=== PATIENT | female | born 1945 | race Caucasian/White ===

== ENCOUNTER 2022-12-09 08:07 | Inpatient (IN) | payer MEDICARE, OTHER ==
[~2022-12-09] VITALS: Ht 149.9 cm; Wt 71.7 kg
[~2022-12-09 08:07] MED LIST: ANESTHESIA TRAY IN PYXIS 1 EA TRAY MC ONE
[2022-12-09] MEDS ORDERED: LIDOCAINE 5% OINT 35.44 GM TUBE ONE (08:28)
[2022-12-09 08:30] VITALS: BP 138/81; TEMP 97.8; O2SAT 94
[2022-12-09] MEDS ORDERED: LIDOCAINE 2%-EPI 1:100,000 30 ML VIAL ONE (11:37)
[2022-12-09] MEDS ORDERED: FENTANYL PF 100MCG/2ML AMPUL ONE (11:38)
[2022-12-09] MEDS ORDERED: MIDAZOLAM HCL 2 MG/2ML VIAL ONE (11:38)
[2022-12-09] MEDS ORDERED: ONDANSETRON HCL/PF 4 MG/2 ML VIAL IV PRN (14:30)
[2022-12-09] MEDS ORDERED: ACETAMINOPHEN 325 MG TABLET PO PRN (14:30)
[2022-12-09] MEDS ORDERED: IV NS 0.9% 1,000 ML IV PRN (14:30)
[2022-12-09] MEDS ORDERED: HYDROMORPHONE 1 MG/1 ML DISP.SYRIN IV PRN (14:30)
[2022-12-09] MEDS ORDERED: hydrALAZINE HCL IV 20 MG VIAL IV PRN (16:30)
[2022-12-09] MEDS ORDERED: DEXTROSE 50%-WATER 50 ML DISP.SYRIN IV PRN (16:30)
[2022-12-09] MEDS ORDERED: ICOS1CAP PO (16:41)
[2022-12-09] MEDS ORDERED: ESOM40CA PO (16:41)
[2022-12-09] MEDS ORDERED: ERGO500093 PO (16:41)
[2022-12-09] MEDS ORDERED: CLOP75TA15 PO (16:41)
[2022-12-09] MEDS ORDERED: DICL2.5D OP (16:41)
[2022-12-09] MEDS ORDERED: RALO60TA PO (16:41)
[2022-12-09] MEDS ORDERED: LISI2.5T2 PO (16:41)
[2022-12-09] MEDS ORDERED: AMLO-212 PO (16:41)
[2022-12-09] MEDS ORDERED: NEBI5TAB8 PO (16:41)
[2022-12-09] MEDS ORDERED: METF-440 PO (16:41)
[2022-12-09] MEDS: BLOOD SUGAR DIAGNOSTIC 1 EACH STRIP IN SCH ×2 (16:53→21:23)
[2022-12-09 20:00] VITALS: BP 134/55; TEMP 98.1; O2SAT 96
[2022-12-09] MEDS: METOPROLOL TARTRATE 25 MG TABLET PO SCH (21:13)
[2022-12-09] MEDS: INSULIN REGULAR, HUMAN 100 UNIT/ML 3 ML VIAL SQ PRN (21:24)
[2022-12-09] MEDS: VANCOMYCIN 1 GM in IV D5W 250ml IV SCH (23:47)
[2022-12-10] MEDS: BLOOD SUGAR DIAGNOSTIC 1 EACH STRIP IN SCH ×2 (06:48→12:56)
[2022-12-10] MEDS: INSULIN REGULAR, HUMAN 100 UNIT/ML 3 ML VIAL SQ PRN (06:50)
[2022-12-10 08:00] VITALS: BP 92/45; TEMP 98.1; O2SAT 98
[2022-12-10 09:00] VITALS: BP 92/55
[2022-12-10] MEDS ORDERED: METFORMIN 500 MG TABLET PO SCH (09:00)
[2022-12-10] MEDS ORDERED: AMLODIPINE BESYLATE 5 MG TABLET PO SCH (09:00)
[2022-12-10] MEDS ORDERED: RALOXIFENE 60 MG TABLET PO SCH (09:00)
[2022-12-10] MEDS ORDERED: LISINOPRIL (5MG) 5 MG TABLET PO SCH (09:00)
[2022-12-10] MEDS ORDERED: PANTOPRAZOLE 40 MG TABLET.DR PO SCH (09:00)
[2022-12-10] MEDS ORDERED: Medication Not On Formulary EA (Icosapent Ethyl (Vascepa) 1 GM) PO SCH (09:00)
[2022-12-10] MEDS: METOPROLOL TARTRATE 25 MG TABLET PO SCH (09:00)
[2022-12-10] MEDS ORDERED: CLOPIDOGREL BISULFATE 75 MG TABLET PO SCH (09:00)
[2022-12-10] MEDS: VANCOMYCIN 1 GM in IV D5W 250ml IV SCH (10:23)
== END 2022-12-10 13:00 | disposition home or self-care (01) | DRG 142 ==
LOC: DS 08:07 → MED 08:09
PROVIDERS: ADMIT Internal Medicine; ATTEND Internal Medicine
PROC: 0NSR04Z Reposition Maxilla with Internal Fixation Device, Open Approach (ICD-10-PCS; principal; 2022-12-09)
PROC: 0CBJ0ZX Excision of Minor Salivary Gland, Open Approach, Diagnostic (ICD-10-PCS; 2022-12-09)
PROC: 0NSV04Z Reposition Left Mandible with Internal Fixation Device, Open Approach (ICD-10-PCS; 2022-12-09)
PROC: 0NST04Z Reposition Right Mandible with Internal Fixation Device, Open Approach (ICD-10-PCS; 2022-12-09)
PROC: 0KB Muscles, Excision (ICD-10-PCS; 2022-12-09)
PROC: 0NBV0ZX Excision of Left Mandible, Open Approach, Diagnostic (ICD-10-PCS; 2022-12-09)
PROC: 0NBR0ZX Excision of Maxilla, Open Approach, Diagnostic (ICD-10-PCS; 2022-12-09)
PROC: 0NBT0ZX Excision of Right Mandible, Open Approach, Diagnostic (ICD-10-PCS; 2022-12-09)
DX: S02.40CA Maxillary fracture, right side, initial encounter for closed fracture (principal); S02.40DA Maxillary fracture, left side, initial encounter for closed fracture; M27.2 Inflammatory conditions of jaws; S02.609A Fracture of mandible, unspecified, initial encounter for closed fracture; D11.9 Benign neoplasm of major salivary gland, unspecified; D17.0 Benign lipomatous neoplasm of skin and subcutaneous tissue of head, face and neck; Z88.0 Allergy status to penicillin; M85.68 Other cyst of bone, other site; D16.4 Benign neoplasm of bones of skull and face; M60.88 Other myositis, other site; I25.10 Atherosclerotic heart disease of native coronary artery without angina pectoris; E11.9 Type 2 diabetes mellitus without complications; E78.5 Hyperlipidemia, unspecified; H91.93 Unspecified hearing loss, bilateral; I10 Essential (primary) hypertension; Z79.84 Long term (current) use of oral hypoglycemic drugs; S02.69XA Fracture of mandible of other specified site, initial encounter for closed fracture; X58.XXXA Exposure to other specified factors, initial encounter; Y93.9 Activity, unspecified; Y92.89 Other specified places as the place of occurrence of the external cause
CPT/HCPCS: 82962-TC; 87081-TC; 88305-TC; 88311-TC; 93307-TC; A4223; C1713; G0378; J1100; J1815; J2250; J2405; J2704; J3010; J3370; J3490; J7030; J7060

== ENCOUNTER 2023-07-13 08:10 | Inpatient (IN) | payer MEDICARE, OTHER ==
[~2023-07-13] VITALS: Ht 157.5 cm; Wt 73.0 kg
[~2023-07-13 08:10] MED LIST changes: +AMLO-212 PO; -ANESTHESIA TRAY IN PYXIS 1 EA TRAY MC ONE; +CLOP75TA15 PO; +DICL2.5D OP; +ERGO500093 PO; +ESOM40CA PO; +ICOS1CAP PO; +LISI2.5T2 PO; +METF-440 PO; +NEBI5TAB8 PO; +RALO60TA PO
[2023-07-13] MEDS ORDERED: dexaMETHasone SOD PHOSPHATE 1 ML ONE (11:34)
[2023-07-13] MEDS ORDERED: LIDOCAINE 2%-EPI 1:100,000 30 ML VIAL ONE (11:34)
[2023-07-13] MEDS ORDERED: VANCOMYCIN 1 GM VIAL ONE (11:34)
[2023-07-13] MEDS ORDERED: ACETAMINOPHEN 325 MG TABLET PO PRN (15:00)
[2023-07-13] MEDS ORDERED: HYDROMORPHONE INJ 2 MG/ML DISP.SYRIN IV PRN (15:00)
[2023-07-13] MEDS ORDERED: ONDANSETRON HCL/PF 4 MG/2 ML VIAL IV PRN (15:00)
[2023-07-13 16:00] VITALS: BP 120/53; TEMP 97.7; O2SAT 94
[2023-07-13 16:55] VITALS: BP 120/53; TEMP 97.7; O2SAT 94
[2023-07-13] MEDS: METOPROLOL TARTRATE 25 MG TABLET PO SCH (17:54)
[2023-07-13] MEDS: METFORMIN 500 MG TABLET PO SCH (17:54)
[2023-07-13 20:00] VITALS: BP 129/62; TEMP 98.4; O2SAT 98
[2023-07-13] MEDS: VANCOMYCIN 1 GM in IV D5W 250ml IV SCH (23:29)
[2023-07-13] MEDS: IV NS 0.9% 1,000 ML IV PRN (23:37)
[2023-07-14 08:35] VITALS: BP 115/64; TEMP 98.2; O2SAT 95
[2023-07-14 09:00] VITALS: BP 115/64
[2023-07-14] MEDS ORDERED: DICLOFENAC 0.1% OPTH DROPS 5 ML BOTTLE OP SCH (09:00)
[2023-07-14] MEDS: CHOLECALCIFEROL 1,000 UNIT TABLET (VIT D3) PO SCH (09:00)
[2023-07-14] MEDS: LISINOPRIL (5MG) 5 MG TABLET PO SCH (09:00)
[2023-07-14] MEDS: CLOPIDOGREL BISULFATE 75 MG TABLET PO SCH (09:00)
[2023-07-14] MEDS: AMLODIPINE BESYLATE 5 MG TABLET PO SCH (09:00)
[2023-07-14] MEDS ORDERED: ERGOCALCIFEROL (VITAMIN D 2) 50,000 UNIT CAPSULE PO SCH (09:00)
[2023-07-14] MEDS: RALOXIFENE 60 MG TABLET PO SCH (09:00)
[2023-07-14] MEDS: PANTOPRAZOLE 40 MG TABLET.DR PO SCH (09:00)
[2023-07-14] MEDS ORDERED: Medication Not On Formulary EA (Icosapent Ethyl (Vascepa) 1 GM) PO SCH (09:00)
[2023-07-14] MEDS ORDERED: ACET325T53 PO (11:21)
[2023-07-14] MEDS ORDERED: TRAM50TA2 PO (11:21)
[2023-07-14] MEDS ORDERED: CLIN300C12 PO (11:21)
== END 2023-07-14 12:05 | disposition home or self-care (01) | DRG 496 ==
LOC: DS 08:10 → MED 08:11
PROVIDERS: ADMIT Nurse Practitioner Acute Care; ATTEND Nurse Practitioner Acute Care
PROC: 0NPW04Z Removal of Internal Fixation Device from Facial Bone, Open Approach (ICD-10-PCS; principal; 2023-07-13)
PROC: 0NUR0JZ Supplement Maxilla with Synthetic Substitute, Open Approach (ICD-10-PCS; 2023-07-13)
PROC: 0NSL04Z Reposition Left Palatine Bone with Internal Fixation Device, Open Approach (ICD-10-PCS; 2023-07-13)
PROC: 0NUL07Z Supplement Left Palatine Bone with Autologous Tissue Substitute, Open Approach (ICD-10-PCS; 2023-07-13)
PROC: 0NBT0ZZ Excision of Right Mandible, Open Approach (ICD-10-PCS; 2023-07-13)
PROC: 0NBR0ZX Excision of Maxilla, Open Approach, Diagnostic (ICD-10-PCS; 2023-07-13)
PROC: 0NBV0ZZ Excision of Left Mandible, Open Approach (ICD-10-PCS; 2023-07-13)
DX: S02.40DK Maxillary fracture, left side, subsequent encounter for fracture with nonunion (principal); M87.88 Other osteonecrosis, other site; S02.40CK Maxillary fracture, right side, subsequent encounter for fracture with nonunion; S02.69XK Fracture of mandible of other specified site, subsequent encounter for fracture with nonunion; I10 Essential (primary) hypertension; E78.5 Hyperlipidemia, unspecified; I25.10 Atherosclerotic heart disease of native coronary artery without angina pectoris; E11.9 Type 2 diabetes mellitus without complications; K21.9 Gastro-esophageal reflux disease without esophagitis; M19.90 Unspecified osteoarthritis, unspecified site; Z88.0 Allergy status to penicillin; Z79.84 Long term (current) use of oral hypoglycemic drugs; M27.2 Inflammatory conditions of jaws; M27.49 Other cysts of jaw; X58.XXXD Exposure to other specified factors, subsequent encounter; S02.8 Fractures of other specified skull and facial bones
CPT/HCPCS: 82962-TC; A4223; C1713; G0378; J1100; J2704; J2765; J3370; J3490; J7030; J7060